=== PATIENT | female | born 1975 | race American Indian/Alaskan Native ===

== ENCOUNTER 2018-12-03 05:25 | Inpatient (IN) | payer MEDICAID ==
--- NOTE | 2018-12-02 16:15 | History and Physical Report ---
History of Present Illness Date of examination: 12/03/18 Chief complaint: scheduled section History of present illness: Pt is a 43 year old female NIVIA 12/03/18 at 40w0d who presents for scheduled section. She has no obstetric complaints. She has had care at [facility] since 12 wks with comanagement by [facility] secondary to advanced maternal age, quad screen positive for trisomy 21 but low risk non-invasive testing, polyhydramnios and previous x 1. She is GBS Negative. Past History Past Medical History: no pertinent history Past Surgical History: section (1996), D&C Family/Genetic History: diabetes, cancer Social history: no significant social history, smoking - Obstetrical History Expected Date of Delivery: 12/03/18 Actual Gestation: 39 Week(s) 6 Day(s) : 5 Para: 1 Hx # Term Pregnancies: 1 Number of Pregnancies: 0 Spontaneous Abortions: 0 Induced : 3 Number of Living Children: 1 Review of Systems All systems: negative - Physical Exam Breasts: Positive: deferred Abdomen: Positive: soft (gravid) Uterus: Positive: enlarged (gravid ) - Obstetrical FHR: auscultation normal Uterine Contraction Pattern: Absent Results All other labs normal. Assessment and Plan A: IUP at 40w0d Previous x 1 Advanced Maternal Age Quad screen positive for Down Syndrome with negative NIPT GBS Negative P: Proceed with repeat section and other indicated procedures
[~2018-12-03 05:25] MED LIST: ANCEF/STERILE WATER 2 GM/20 ML 2 GM/20 ML SYRINGE IV NR; PITOCin/NS 20 UNIT/1000ML DRIP 20 UNITS/1,000 ML BAG IV SCH
--- NOTE | 2018-12-03 05:50 | Anesthesia Consultation ---
Anesthesia Consult and Med Hx - Airway Anesthetic Teeth Evaluation: Good ROM Head & Neck: Adequate Mental/Hyoid Distance: Adequate Mallampati Class: Class I Intubation Access Assessment: Good - Pulmonary Exam CTA: Yes - Cardiac Exam Cardiac Exam: RRR - Pre-Operative Health Status ASA Pre-Surgery Classification: ASA2 Proposed Anesthetic Plan: Spinal - Pulmonary Hx Asthma: No COPD: No Hx Pneumonia: No - Endocrine Hx End Stage Renal Disease: No
--- NOTE | 2018-12-03 05:50 | Anesthesia Day of Surgery ---
Anesthesia Day of Surgery - Day of Surgery Patient Examined: Yes Patient H&P Reviewed: Yes Patient is NPO: Yes Beta Blockers: No Cardiac Clearance: No Pulmonary Clearance: No Aramis's Test: N/A
[2018-12-03] MEDS ORDERED: DILAUDID IV PRN (05:51)
[2018-12-03] MEDS ORDERED: ZOFRAN IV PRN ×2 (05:51→10:57)
[2018-12-03] MEDS ORDERED: BENADRYL IV PRN (05:51)
[2018-12-03] MEDS ORDERED: PHENERGAN PO PRN (05:51)
[2018-12-03] MEDS ORDERED: NARCAN 0.4 MG/1 ML IV PRN ×2 (05:51→10:57)
[2018-12-03] MEDS ORDERED: PHENERGAN PR PRN (05:51)
[2018-12-03] MEDS ORDERED: SODIUM CHLORIDE FLUSH SYRINGE 10 ML IV PRN (06:00)
[2018-12-03] MEDS: LACTATED RINGERS 1,000 ML IV SCH ×2 (06:00→06:54)
[2018-12-03] MEDS ORDERED: PEPCID IV ONE (06:15)
[2018-12-03] MEDS ORDERED: REGLAN IV ONE (06:15)
[2018-12-03] MEDS ORDERED: BICITRA PO ONE (06:15)
[2018-12-03 06:54] LABS: Basophils # (Auto) 0.1 K/mm3 (0.0-0.1); Basophils % (Auto) 0.6 % (0.0-1.8); Eosinophils % (Auto) 0.4 % (0.0-4.3); Hematocrit 37.4 % (30.3-42.9); Hemoglobin 12.8 gm/dl (10.1-14.3); Lymphocytes # (Auto) 2.3 K/mm3 (1.2-5.4); Lymphocytes % (Auto) 25.1 % (13.4-35.0); Mean Corpuscular HGB Conc 34 % (30-34); Mean Corpuscular Volume 91 fl (79-97); Monocytes # (Auto) 0.7 K/mm3 (0.0-0.8); Platelet Count 309 K/mm3 (140-440); Red Blood Count 4.14 M/mm3 (3.65-5.03); Red Cell Distribution Width 14.1 % (13.2-15.2)
[2018-12-03] MEDS ORDERED: NEO SYNEPHRINE/NS Syringe(OR USE) IV ONE (07:31)
[2018-12-03] MEDS ORDERED: SUBLIMAZE ONE (07:31)
[2018-12-03] MEDS ORDERED: ZOFRAN ONE (07:31)
[2018-12-03] MEDS ORDERED: ANCEF/STERILE WATER 2 GM/20 ML IV ONE (07:43)
[2018-12-03] MEDS ORDERED: LACTATED RINGERS 1,000 ML ONE (07:49)
[2018-12-03] MEDS ORDERED: NACL 0.9% IR ONE (08:00)
[2018-12-03] MEDS ORDERED: WATER FOR IRRIG STERILE IR ONE (08:00)
[2018-12-03] MEDS ORDERED: TORADOL ONE (08:07)
--- NOTE | 2018-12-03 09:12 | Procedure Note ---
OB Delivery Note - Delivery Date of Delivery: 12/03/18 Surgeon: ARACELI VAIL Estimated blood loss: other (700 mL) - Section Preop diagnosis: repeat Postop diagnosis: same section procedure: section, repeat low transverse Disposition: PACU Complications: none Narrative: Please see operative report - Infant A at 1 minute: 8 at 5 minutes: 9 Infant Gender: Male (3770g (8lb 5oz) @ 0817 am)
--- NOTE | 2018-12-03 09:15 | Operative Report ---
Operative Report Operative Report: Date of procedure: December 03, 2018 Preoperative diagnosis: 1) IUP at 40w0d 2) Previous x 1 3) SROM 4) O besity Postoperative diagnosis: Same Procedure: Repeat low transverse section Surgeon: Veronica Aguilera M.D. Anesthesia: Regional Findings: 1) Viable male , Apgars 8 and 9, weight 3770g, (8 lb 5 oz) in cephalic presentation. Nuchal cord x 1 2) Normal-appearing uterus ovaries and tubes Estimated blood loss: 700 mL IV fluids: 2200 mL Urine output: 150 mL, clear at the end of the procedure Drains: Pozo to gravity Specimens: Placenta to pathology Complications: None Disposition: Stable to PACU Indication for procedure: Pt is a 43 year old -[place]ish female at 40 wks with a h/o previous presents for repeat section. She experienced SROM while in triage. The decision was made to proceed with section. Operation in detail: After the risks, benefits, alternatives and complications were explained to the patient she gave informed consent for the procedure. She was subsequently taken to the operating room where regional anesthesia was noted to be adequate. She was subsequently placed in the dorsal supine position with leftward tilt and prepped and draped in a normal sterile fashion. heart tones were noted to be in the 135s prior to incision. A timeout was performed. A Pfannenstiel skin incision was made with the knife and carried down to the layer of the fascia with the Bovie. The fascia was incised in the midline and the fascial incision was extended bilaterally with the Bovie. Attention was then turned to the superior aspect of the incision which was grasped with two Kochers, tented up, and dissected off the rectus muscles. Attention was then turned to the inferior aspect of the incision which was grasped with two Kochers, tented up and dissected off the rectus muscles. The rectus muscles were then in the midline. The peritoneum was then entered sharply. The peritoneal incision was extended with good visualization of the bladder. The peritoneal incision was then stretched. An Audi self-retaining retractor was placed for visualization. The bladder blade was placed. The vesicouterine peritoneum was grasped with smooth pickups and incised with Metzenbaum scissors. Metzenbaum scissors were used to extend the incision bilaterally. The bladder flap was then created digitally and the bladder blade was replaced. A transverse incision was made in the lower uterine segment with a knife and extended bilaterally with the bandage scissors. The head was delivered without difficulty followed by shoulders and body. was bulb suctioned at delivery. The cord was clamped and cut and the was handed to NICU staff in attendance. Cord blood was collected. The placenta was then delivered manually. The uterus was then cleared of all clots and debris. The hysterotomy was then reapproximated with 0 Vicryl in a running locked fashion. A second layer of the same suture was used in imbricating fashion. The hysterotomy was inspected and hemostasis was noted. The Audi self-retaining retractor was removed. The gutters were irrigated and cleared of all clots and debris. The hysterotomy was again inspected and noted to be hemostatic. Surgicel was placed over the hysterotomy. The peritoneum was reapproximated with 2-0 Vicryl in a running fashion incorporating the rectus muscles. Surgicel was placed over the cut edges of the rectus muscles. The fascia was reapproximated with 0 Vicryl in a running fashion. The skin was reapproximated with 4-0 Vicryl in a subcuticular fashion. The incision was then covered with skin glue and a pressure dressing. The procedure was then ended. The patient tolerated the procedure well and was taken to the PACU in stable condition. All instrument, lap, and needle counts were correct 3.
[2018-12-03] MEDS ORDERED: D5LR 1,000 ML IV SCH (10:57)
[2018-12-03] MEDS ORDERED: IBUPROFEN PO PRN (10:57)
[2018-12-03] MEDS ORDERED: TUCKS PAD TP PRN (10:57)
[2018-12-03] MEDS ORDERED: SODIUM CHLORIDE FLUSH SYRINGE 10 ML IV SCH (10:57)
[2018-12-03] MEDS ORDERED: MYLICON PO PRN (10:57)
[2018-12-03] MEDS ORDERED: LANSINOH TP PRN (10:57)
[2018-12-03] MEDS ORDERED: PITOCin/NS 20 UNIT/1000ML DRIP 20 UNITS/1,000 ML BAG IV SCH (11:57)
[2018-12-03] MEDS: MILK OF MAGNESIA PO SCH ×2 (14:54→18:09)
[2018-12-03] MEDS: TORADOL IV PRN (14:54)
[2018-12-03] MEDS: ANCEF/NS 1 GM/50 ML 1 GM/50 ML BAG IV SCH (16:25)
[2018-12-03] MEDS: FEOSOL PO SCH (17:14)
--- NOTE | 2018-12-03 17:18 | Post Anesthesia Evaluation ---
- Post Anesthesia Evaluation Patient Participated: Yes Airway Patent: Yes Stable Respiratory Function: Yes Nausea/Vomiting: No Temp > 96.8F: Yes Pain Manageable: Yes Adequeate Hydration: Yes Anesthesia Complications: No Block Receding Appropriately: Yes Patient on Ventilator: No
[2018-12-03] MEDS ORDERED: APRESOLINE IV ONE (21:06)
[2018-12-03] MEDS: PERCOCET 5/325 PO PRN (21:22)
[2018-12-03 22:10] LABS: Hematocrit 33.4 % (30.3-42.9); Hemoglobin 11.2 gm/dl (10.1-14.3)
[2018-12-04] MEDS: ANCEF/NS 1 GM/50 ML 1 GM/50 ML BAG IV SCH (01:00)
[2018-12-04] MEDS: TORADOL IV PRN (02:25)
[2018-12-04] MEDS: MILK OF MAGNESIA PO SCH ×3 (05:50→17:00)
[2018-12-04] MEDS ORDERED: BOOSTRIX IM ONE (06:00)
[2018-12-04] MEDS ORDERED: M-M-R II VACCINE SUB-Q ONE (09:20)
[2018-12-04] MEDS: PERCOCET 5/325 PO PRN ×3 (11:14→22:20)
[2018-12-04] MEDS: FEOSOL PO SCH (11:17)
[2018-12-05] MEDS: MILK OF MAGNESIA PO SCH ×4 (00:26→18:27)
[2018-12-05] MEDS: PERCOCET 5/325 PO PRN (05:11)
[2018-12-05] MEDS: FEOSOL PO SCH (10:20)
--- NOTE | 2018-12-05 13:05 | Progress Note ---
Assessment and Plan A/P POD #2 s/P repeat csec routine care consider d/c home tomorrow Subjective - Subjective Date of service: 12/05/18 Principal diagnosis: s/p repeat csec Patient reports: appetite normal, voiding normally, pain well controlled, flatus, ambulating normally : doing well Objective - Vital Signs Latest vital signs: Vital Signs Temp Pulse Resp BP BP Pulse Ox 12/05/18 07:40 98.1 F 83 20 127/87 97 12/05/18 05:11 18 12/05/18 00:32 98.9 F 82 18 140/92 95 12/04/18 22:20 18 12/04/18 16:56 16 12/04/18 16:09 97.9 F 64 18 137/97 98 Intake and Output 12/04/18 12/05/18 12/05/18 23:59 07:59 15:59 Intake Total 440 500 Balance 440 500 Intake: Oral 440 200 Intake, Free Water 300 Other: Total, Intake Amount 200 200 # Voids Indwelling Catheter 1 - Exam Breasts: Present: normal Cardiovascular: Present: Regular rate, Normal S1 Lungs: Present: Clear to auscultation, Normal air movement Abdomen: Present: normal appearance, soft, normal bowel sounds. Absent: distention, tenderness, guarding Vulva: both: normal Uterus: Present: normal, firm, fundal height below umbilicus. Absent: bogginess, tenderness Extremities: Present: normal Deep Tendon Reflex Grade: Normal +2 Incision: Present: normal, dry, intact
[2018-12-06] MEDS: MILK OF MAGNESIA PO SCH ×2 (06:00)
[2018-12-06] MEDS: FEOSOL PO SCH (09:03)
--- NOTE | 2018-12-06 11:40 | Progress Note ---
Assessment and Plan A/P POD #3 s/P repeat csec routine care d/c home f/u in 1 weeks for BP check Subjective - Subjective Date of service: 12/06/18 Principal diagnosis: s/p repeat csec Patient reports: appetite normal, voiding normally, pain well controlled, flatus, ambulating normally : doing well Objective - Vital Signs Latest vital signs: Vital Signs Temp Pulse Resp BP Pulse Ox 12/06/18 08:15 98.3 F 65 20 137/92 96 12/06/18 03:47 18 12/06/18 00:20 98.5 F 75 20 142/80 97 12/05/18 16:28 97.9 F 93 H 20 135/89 98 Intake and Output 12/05/18 12/06/18 12/06/18 23:59 07:59 15:59 Intake Total 360 360 120 Balance 360 360 120 Intake: Oral 120 240 120 Intake, Free Water 240 120 Other: Total, Intake Amount 120 240 120 # Voids Void 1 1 2 # Bowel Movements 1 1 - Exam Breasts: Present: normal Cardiovascular: Present: Regular rate, Normal S1 Lungs: Present: Clear to auscultation, Normal air movement Abdomen: Present: normal appearance, soft, normal bowel sounds. Absent: distention, tenderness, guarding Vulva: both: normal Uterus: Present: normal, firm, fundal height below umbilicus. Absent: bogginess, tenderness Deep Tendon Reflex Grade: Normal +2 Incision: Present: normal
--- NOTE | 2018-12-06 11:44 | Discharge Summary ---
Providers - Providers Date of Admission: 12/03/18 05:25 Date of discharge: 12/06/18 Attending physician: ARACELI VAIL Primary care physician: ARACELI VAIL Hospitalization Reason for admission: section Delivery: Procedure: section Episiotomy: none Laceration: none Incision: normal, dry, intact Other procedures: none complications: none Discharge diagnosis: IUP at term delivered baby: male Condition at discharge: Good Disposition: DC-01 TO HOME OR SELFCARE Plan - Discharge Medications Prescriptions: Ferrous Sulfate [Feosol 325 MG tab] 325 mg PO BID #60 tablet Ibuprofen [Motrin] 800 mg PO Q8HR PRN #30 tablet PRN Reason: Pain, Moderate (4-6) oxyCODONE /ACETAMINOPHEN [Percocet 5/325] 1 tab PO Q6HR PRN #40 tablet PRN Reason: Pain - Provider Discharge Summary Activity: routine, no sex for 6 weeks, no strenuous exercise Diet: routine Instructions: routine Additional instructions: [] Smoking cessation referral if applicable(refer to patient education folder for contact #) [] Refer to [facility]'s [facility] Booklet Call your doctor immediately for: * Fever > 100.5 * Heavy vaginal bleeding ( >1 pad per hour) * Severe persistent headache * Shortness of breath * Reddened, hot, painful area to leg or breast * Drainage or odor from incision. * Keep incision clean and dry at all times and follow doctor's instructions regarding bathing/showering - Follow up plan Follow up: ARACELI VAIL MD [Primary Care Provider] - 12/11/18
[2018-12-07 09:05] VITALS: BP 140/93
[2018-12-07] MEDS: FEOSOL PO SCH (10:21)
[2018-12-07] MEDS: MILK OF MAGNESIA PO SCH (10:21)
== END 2018-12-07 11:00 | disposition home or self-care (01) | DRG 766 ==
LOC: APU 05:25 → OB 10:44
PROVIDERS: ADMIT Obstetrics & Gynecology; ATTEND Obstetrics & Gynecology
PROC: 10D00Z1 Extraction of Products of Conception, Low, Open Approach (ICD-10-PCS; principal; 2018-12-03)
PROC: 3E0234Z Introduction of Serum, Toxoid and Vaccine into Muscle, Percutaneous Approach (ICD-10-PCS; 2018-12-04)
DX: O34.211 Maternal care for low transverse scar from previous cesarean delivery (principal); E66.9 Obesity, unspecified; O69.81X0 Labor and delivery complicated by cord around neck, without compression, not applicable or unspecified; O99.214 Obesity complicating childbirth; Z37.0 Single live birth; Z83.3 Family history of diabetes mellitus; Z3A.39 39 weeks gestation of pregnancy; Z80.9 Family history of malignant neoplasm, unspecified; Z23 Encounter for immunization
CPT/HCPCS: 36415; 85014; 85018; 85025; 86592; 86850; 86900; 86901; 88307; G0378; J0690; J1885; J2370; J2405; J2590; J2765; J3010; J7120; J7121